=== PATIENT | female | born 1955 | race Caucasian/White ===

== ENCOUNTER → 2020-08-18 07:31 | Outpatient (CLI) | payer OTHER, SELFPAY ==
--- NOTE | ~2020-08-18 | MM_ITS ---
EXAMINATION: MM screening [facility] BI w hardeep HISTORY: Screening TECHNIQUE: Craniocaudal and mediolateral oblique 3-D tomosynthesis images were obtained and synthetic 2-D images were generated. CAD analysis was submitted and interpreted. COMPARISON: Comparison to multiple prior studies sequentially, with oldest reviewed study dated 04/02. BREAST PARENCHYMAL COMPOSITION: There are scattered areas of fibroglandular density. FINDINGS: There is no evidence of suspicious mass, calcification, or architectural distortion to sugg est malignancy in either breast. There has been no suspicious interval change. IMPRESSION: 1. No mammographic evidence of malignancy. 2. Recommend routine screening mammography in one year. BI-RADS Category 1: Negative Reviewed, dictated and finalized at location A.
== END ==
PROVIDERS: PCP Emergency Medicine; Visit Provider Emergency Medicine
DX: Z12.31 Encounter for screening mammogram for malignant neoplasm of breast (principal)
CPT/HCPCS: 77063; 77067

== ENCOUNTER 2021-03-06 08:37 | Emergency (ER) | payer MEDICARE, OTHER, SELFPAY ==
[2021-03-06] VITALS (14 sets, daily range): BP systolic 135–147; BP diastolic 68–97; PULSE 91; RESP 16; TEMP 36.9; O2SAT 96–100
--- NOTE | ~2021-03-06 | XR_ITS ---
EXAMINATION: XR chest 2V DATE: 03/06/2021 10:40 INDICATION: Intermittent epigastric abdominal pain. TECHNIQUE: Frontal and lateral views of the chest were obtained. COMPARISON: None. FINDINGS: There is mild atelectasis in the lower lung zones. There is mild scarring at the lung apice s. No pleural effusion or pneumothorax. The heart size is normal. There is a large hiatal hernia. IMPRESSION: 1. Large hiatal hernia. 2. Mild atelectasis in the lower lung zones. Reviewed, dictated and finalized at location A.
--- NOTE | ~2021-03-06 | US_ITS ---
EXAMINATION: US abdomen limited DATE: 03/06/2021 11:23 INDICATION: Intermittent epigastric pain. TECHNIQUE: Multiple grayscale and Doppler ultrasound images of the abdomen were obtained. COMPARISON: None FINDINGS: The pancreatic head and body are normal in appearance. The pancreatic tail is not visualized. Liver has normal echogenicity and contour, with a smooth surface. There are couple anechoic hepatic cysts w ith posterior acoustic enhancement measuring 2.3 cm and 1.9 cm in maximal diameters. No solid liver l esion identified. No intrahepatic biliary duct dilation suspected. Portal venous flow was seen in the hepatopetal, normal direction and has normal Doppler waveform. The gallbladder is normal in appearan ce. There is no cholelithiasis. The common bile duct measures 4 mm, which is normal. Sonographic Mur phy sign was reported as negative by the auto mechanic apprentice. IMPRESSION: 1. A couple approximately 2 cm incidental hepatic cysts. Otherwise unremarkable right upper quadrant ultrasound. Reviewed, dictated and finalized at location B.
[2021-03-06 09:03] LABS: Basophils Absolute Auto 0.1 K/mm3 (0.0-0.1); Basophils Percent Auto 1.2 % (0.2-1.2); Eosinophils Absolute Auto 0.2 K/mm3 (0-0.3); Eosinophils Percent Auto 2.5 % (0-4.4); Hematocrit 39.5 % (37.0-47.0); Hemoglobin 13.3 g/dL (12.0-15.0); Immature Granulocyte Absolute 0.02 K/mm3 (0.00-0.031); Immature Granulocyte Percent A 0.2 % (0-0.5); Lymphocytes Absolute Auto 1.33 K/mm3 (0.9-3.2); Lymphocytes Percent Auto 15.9 % (18.3-44.2); Mean Corpuscular HGB Conc 33.7 g/dl (32-36); Mean Corpuscular Hemoglobin 30.9 pg (26-34); Mean Corpuscular Volume 91.9 fl (80-100); Mean Platelet Volume 10.8 fl (7.4-10.4); Monocytes Absolute Auto 0.7 K/mm3 (0.1-0.6); Monocytes Percent Auto 8.5 % (2.6-8.5); Neutrophils Percent Auto 71.7 % (45.5-73.1); Platelet Count Result 229 k/mm3 (150-375); Red Cell Distribution Width 12.6 % (11.5-14.5); White Blood Count 8.4 K/mm3 (4.5-10.0)
[2021-03-06 10:18] LABS: Add Urine Microscopic? YES; Appearance Urine Clear (Clear); Bilirubin Urine Negative (Negative); Blood Urine Negative (Negative); Color Urine Amber (Yellow); Glucose Urine UA Negative (Negative); Ketones Urine Trace mg/dL (Negative); Leukocyte Esterase Ur 1+ LEU/UL (Negative); Mucus Urine Heavy /lpf; Nitrate Urine Negative (Negative); Protein Urine 1+ mg/dL (Negative); Specific Grav Ur 1.028 (1.001-1.035); Squamous Epithelial Cell Urine Occasional /hpf (Few)
--- NOTE | 2021-03-06 10:19 | ECG_ITS ---
Measurements Intervals [place] Rate: 81 P: 20 [place]: 159 QRS: 16 QRSD: 93 T: 46 QT: 357 QTc: 416 Interpretive Statements SINUS RHYTHM POSSIBLE LEFT ATRIAL ENLARGEMENT INCOMPLETE RIGHT BUNDLE BRANCH BLOCK BASELINE ARTIFACT- I, II, III, AVR, AVL, V4-V5 BORDERLINE ECG Electronically Signed On 03-06-2021 10:58:05 CDT by Valerio Garrido D.O.
[2021-03-06 10:25] LABS: Alanine Aminotransferase 30 U/L (4-35); Albumin Level 4.7 g/dL (3.5-5.1); Alkaline Phosphatase 86 U/L (38-126); Anion Gap 6 mmol/L (8-16); Aspartate Amino Transferase 32 U/L (14-36); Bilirubin,Total 0.5 mg/dL (0.2-1.3); Blood Urea Nitrogen 17 mg/dL (7-17); Calcium 9.5 mg/dL (8.4-10.2); Carbon Dioxide 34 mmol/L (22-30); Chloride 101 mmol/L (98-107); Estimated CRCL calculation 83 ml/min; Estimated Glomerular Filt Rate > 60; Glucose 113 mg/dL (65-110); Lipase 47 U/L (23-300); Potassium 3.7 mmol/L (3.4-5.0); Sodium 141 mmol/L (137-145)
[2021-03-06 13:13] LABS: Troponin I < 0.012 ng/mL (0.000-0.034)
--- NOTE | 2021-03-06 17:30 | ED.GENADULT ---
HPI - General Adult General Chief complaint: Abdominal Pain Stated complaint: stomach issues Time Seen by Provider: 03/06/21 09:15 Source: patient Mode of arrival: ambulatory Limitations: no limitations History of Present Illness HPI narrative: Patient presents for evaluation of pain in her epigastric area that has been occurring for multiple weeks. Patient reports she notices the pain increased after she is eating. She states that she keeps the pain manageable by eating very small amounts of food. She states that the pain increases she has tried to take Tums in order to help. She reports a few episodes of vomiting but not persistently. She denies any fevers, chills, pain presently. She reports that her bowels are normal. She denies any fever, chills, cough, shortness of breath. Related Data Home Medications Medication Instructions Recorded Confirmed fluticasone propionate 50 See Rx Instructions .ROUTE .COMPLEX 05/14/19 mcg/actuation nasal spray,suspension Allergies Allergy/AdvReac Type Severity Reaction Status Date / Time No Known Allergies Allergy Unknown Unverified 02/24/18 15:01 Review of Systems Review of Systems: CONSTITUTIONAL: Denies fever, chills, or sweats. EYES: Denies visual changes, redness, or discharge. ENT: Denies rhinorrhea, congestion, sore throat, or otalgia. CARDIOVASCULAR: Denies chest pain, palpitations, or edema. RESPIRATORY: Denies cough or dyspnea. GASTROINTESTINAL: Reports abdominal pain, nausea, vomiting denies diarrhea. GENITOURINARY: Denies dysuria or hematuria. SKIN: Denies rash or itching. MUSCULOSKELETAL: Denies back pain, joint pain, or myalgia. NEUROLOGIC: Denies headache, numbness, dizziness, or weakness. PSYCHIATRIC: Denies anxiety or depression. PMFSH Past Medical History Medical History HLD (hyperlipidemia) Family History Family History Father Acute myocardial infarction, Onset Age: 87 Other Family history of arthritis Family history of cardiovascular disease Hypertension Social History Social History Smoking status: Never smoker Alcohol intake: current Exam Narrative: GENERAL: Well-appearing, well-nourished, and in no acute distress. HEAD: Normocephalic, atraumatic. EYES: PERRLA and EOMI. NECK: Supple. No adenopathy or masses. CHEST: Clear to auscultation. No respiratory distress. No wheezes rales or rhonchi HEART: Regular rate and rhythm. No murmur heard. Normal peripheral pulses. ABDOMEN: Soft, epigastric/upper center tenderness to palpation, nondistended, normal active bowel sounds. EXTREMITIES: Normal range of motion. No edema. SKIN: Warm, dry, no rash. NEURO: No focal deficits. Alert and oriented x3. PSYCH: Normal mood and affect. Course Vital Signs Vital signs: Vital Signs Temperature 98.4 F 03/06/21 08:41 Pulse Rate 91 03/06/21 08:41 Respiratory Rate 16 03/06/21 08:41 Blood Pressure 146/76 H 03/06/21 08:41 Pulse Oximetry 100 03/06/21 08:41 Temperature 98.4 F 03/06/21 08:41 Pulse Rate 91 03/06/21 08:41 Respiratory Rate 16 03/06/21 08:41 Blood Pressure 135/74 03/06/21 13:46 Pulse Oximetry 97 03/06/21 10:47 Medical Decision Making MDM Narrative Medical decision making narrative: Patient's ultrasound of her gallbladder was without signs of cholecystitis. Patient vital signs are stable. Patient CT shows hiatal hernia. Discussed with patient attempts to decrease her symptoms by eating small amounts of to and PPIs. Patient instructed to follow-up with primary care GI specialist for further investigation and management of her symptoms. Patient instructed to return to emergency department if she develops any signs of incarceration or any other emergent symptoms. Vital Signs Vital Signs: Vital Signs Temperature 98.4 F
== END 2021-03-06 13:48 | disposition home or self-care (01) ==
PROVIDERS: Physician Assistant; Emergency Provider Emergency Medicine; PCP Emergency Medicine
DX: K44.9 Diaphragmatic hernia without obstruction or gangrene (principal); E78.5 Hyperlipidemia, unspecified
CPT/HCPCS: 36415; 71046; 76705; 80053; 81001; 83690; 84484; 85025; 87086; 93005; 99284

== ENCOUNTER 2021-04-24 00:34 | Day surgery (SDC) | payer MEDICARE, SELFPAY ==
[2021-04-12 09:29] VITALS: BMI 34.5
[2021-04-24 13:00] VITALS: BP 138/62; PULSE 79; RESP 18; TEMP 36.2; O2SAT 99; BMI 32.8
--- NOTE | 2021-04-24 13:23 | WPDANESEPPF ---
Anes - Initial Pre Proc Eval Procedure: Operation Date: 04/24/21 14:00 Proposed Procedures p Esophagogastroduodenoscopy - Abhishek Hargrove MD Date/Time: 04/24/21 13:23 Surgeon: Abhishek Hargrove MD Pre Op Diagnosis: epigastric pain Patient Data Age: 66 Gender: F Height: 1.7 m Weight: 95 kg Last Vital Signs Temp 36.2 C L 04/24/21 13:00 Pulse 79 04/24/21 13:00 Resp 18 04/24/21 13:00 BP 138/62 04/24/21 13:00 Pulse Ox 99 04/24/21 13:00 Allergies Allergy/AdvReac Type Severity Reaction Status Date / Time No Known Allergies Allergy Unknown Verified 04/24/21 13:13 Home Medications Medication Instructions Recorded Confirmed Type omeprazole 20 mg PO DAILY #14 tablet 03/06/21 04/24/21 Rx L.acidoph, paracasei,B. lactis 10 10 cell PO DAILY 04/06/21 04/24/21 History billion cell capsule ascorbic acid (vitamin C) 1,000 mg 1 g PO DAILY 04/06/21 04/24/21 History tablet cholecalciferol (vitamin D3) 125 125 mcg PO DAILY 04/06/21 04/24/21 History mcg (5,000 unit) capsule glucosam 750 mg-chondroi 100 2 tablet PO DAILY 04/06/21 04/24/21 History mg-hyalur 1.65 mg-CF borate 108 mg tablet mecobalamin (vitamin B12) 1,000 1,000 mcg SUBLINGUAL DAILY 04/06/21 04/24/21 History mcg disintegrating tablet,sublingual multivitamin 1 tablet PO DAILY 04/06/21 04/24/21 History omega 3-sbz-rcu-fish oil 1,200 mg 1 cap PO DAILY 04/06/21 04/24/21 History (144 mg-216 mg) capsule Patient hx anesthesia problems: none Family hx anesthesia problems: none Results Review: All pre-operative results and documents have been reviewed as part of the pre-operative evaluation. [facility] Past Medical History Medical History (Updated 04/24/21 @ 13:24 by Asif Mauricio MD) GERD (gastroesophageal reflux disease) HLD (hyperlipidemia) Obesity SHERRY (obstructive sleep apnea) Family History Family History Father Acute myocardial infarction, Onset Age: 87 Malignant neoplasm of prostate Hypertension Mother Hypertension Other Family history of arthritis Family history of cardiovascular disease Social History Social History (Updated 04/24/21 @ 13:24 by Asif Mauricio MD) Smoking packs per day: 0.5 Smoking cigarettes per day: 10.0 Years smoked: 11 Smoking pack-years: 5.50 Smoking status: Former smoker Tobacco type: cigarettes Smoking end date: 06/02/83 Alcohol intake: current Alcohol use details: rarely Living arrangements: with family Spiritual care concerns: No Anes - Eval Final PreProcedure Day of Procedure 04/24/21 13:23 Patient weight: obese Heart: regular rate and rhythm Lungs: clear to auscultation Airway: Mallampati scale class II Neurological: alert and oriented Last oral intake: >/= 8 hours ASA classification: III Emergent: no Anesthetic plan: proceed Anesthesia type and monitoring: general GIVS and standard monitoring Results Review: All pre-operative results and documents have been reviewed as part of the pre-operative evaluation. Informed Consent: The patient's anesthetic plan and its attendant risks and benefits were discussed with the patient/family/POA. Questions were solicited and answers provided to the satisfaction of the patient/family/POA.
[2021-04-24] MEDS: LACTATED RINGERS 1,000 ML 150 ML IV CONT (13:32)
--- NOTE | 2021-04-24 13:38 | WPDGICN ---
Assessment and Plan Assessment and plan (1) Epigastric abdominal pain: Code(s): R10.13 - Epigastric pain Status: Acute Assessment and Plan: Epigastric pain appears to represent dyspepsia. Agree with trial of omeprazole 20mg p.o Daily. Because of a EGD is requested we will hopefully exclude any other organic disease. Initially we would try stopping this medications in restart it will start long-term only if symptoms recur. GI Consult Note Consult date/time: 04/24/21 13:38 HPI: Livia Goodwin is a 66 year old female Presents for EGD. Patient complains of a several month history of epigastric discomfort. She feels as though there was a knot in her stomach. She took sxqi-wwi-wrgwgez antacid such as Rolaids which helped initially but then failed to improve. Upon being referred to the GI service she was started on omeprazole with prompt improvement of pain. Patient presents today for EGD to further evaluate this kind of discomfort. She no longer has the pain today. She denies any bleeding or weight loss family history is noncontributory. Review of Systems Review of Systems: All systems reviewed & are unremarkable except as noted in HPI and below PMFSH Past Medical History Medical History (Updated 04/24/21 @ 13:40 by Abhishek Hargrove MD) GERD (gastroesophageal reflux disease) HLD (hyperlipidemia) Obesity SHERRY (obstructive sleep apnea) Family History Family History Father Acute myocardial infarction, Onset Age: 87 Malignant neoplasm of prostate Hypertension Mother Hypertension Other Family history of arthritis Family history of cardiovascular disease Social History Social History (Updated 04/24/21 @ 13:24 by Asif Mauricio MD) Smoking packs per day: 0.5 Smoking cigarettes per day: 10.0 Years smoked: 11 Smoking pack-years: 5.50 Smoking status: Former smoker Tobacco type: cigarettes Smoking end date: 06/02/83 Alcohol intake: current Alcohol use details: rarely Living arrangements: with family Spiritual care concerns: No Meds Home Medications and Allergies Home Medications Medication Instructions Recorded Confirmed Type omeprazole 20 mg PO DAILY #14 tablet 03/06/21 04/24/21 Rx L.acidoph, paracasei,B. lactis 10 10 cell PO DAILY 04/06/21 04/24/21 History billion cell capsule ascorbic acid (vitamin C) 1,000 mg 1 g PO DAILY 04/06/21 04/24/21 History tablet cholecalciferol (vitamin D3) 125 125 mcg PO DAILY 04/06/21 04/24/21 History mcg (5,000 unit) capsule glucosam 750 mg-chondroi 100 2 tablet PO DAILY 04/06/21 04/24/21 History mg-hyalur 1.65 mg-CF borate 108 mg tablet mecobalamin (vitamin B12) 1,000 1,000 mcg SUBLINGUAL DAILY 04/06/21 04/24/21 History mcg disintegrating tablet,sublingual multivitamin 1 tablet PO DAILY 04/06/21 04/24/21 History omega 9-xym-rdk-fish oil 1,200 mg 1 cap PO DAILY 04/06/21 04/24/21 History (144 mg-216 mg) capsule Allergies Allergy/AdvReac Type Severity Reaction Status Date / Time No Known Allergies Allergy Unknown Verified 04/24/21 13:13 Vital Signs Vital Signs - 24 hr 04/24/21 13:00 Temperature 97.2 F L Pulse Rate 79 Respiratory Rate 18 Blood Pressure 138/62 Pulse Oximetry 99 Exam Narrative: Physical exam reveals patient be alert. Vital signs stable. HEENT exam is unremarkable. Patient is anicteric. Lungs are clear to auscultation and percussion. Heart is without murmur or extra sounds. Abdominal exam bowel sounds are present soft nontender with no hepatosplenomegaly. Digital external rectal exam deferred at present.
[2021-04-24] MEDS: SIMETHICONE ORAL SUSPENSION 20 MG/0.3 ML 30 ML BOTTLE 0.6 ML IRRIGATION (13:48)
[2021-04-24 13:57] VITALS: BP 98/75; PULSE 81; RESP 20; O2SAT 100
[2021-04-24 14:07] VITALS: BP 120/76; PULSE 79; RESP 21; O2SAT 100
[2021-04-24 14:17] VITALS: BP 132/86; PULSE 76; RESP 15; O2SAT 100
== END 2021-04-24 14:32 | disposition home or self-care (01) ==
PROVIDERS: PCP Emergency Medicine; Visit Provider Internal Medicine Gastroenterology
PROC: 0DJ08ZZ Inspection of Upper Intestinal Tract, Via Natural or Artificial Opening Endoscopic (ICD-10-PCS; CPT 43235; principal; 2021-04-24 14:00)
DX: K21.9 Gastro-esophageal reflux disease without esophagitis (principal); K29.50 Unspecified chronic gastritis without bleeding; E78.5 Hyperlipidemia, unspecified; G47.33 Obstructive sleep apnea (adult) (pediatric); Z87.891 Personal history of nicotine dependence; K25.3 Acute gastric ulcer without hemorrhage or perforation
CPT/HCPCS: 43239; 88305; 88342; J7120

== ENCOUNTER 2021-07-31 01:27 | Day surgery (SDC) | payer MEDICARE, SELFPAY ==
[2021-07-18 12:10] VITALS: BMI 33.8
[2021-07-31 08:08] VITALS: BP 145/71; PULSE 79; RESP 20; TEMP 36.5; O2SAT 98; BMI 35.1
[2021-07-31] MEDS: LACTATED RINGERS 1,000 ML 150 ML IV CONT (08:14)
--- NOTE | 2021-07-31 08:39 | WPDGICN ---
Assessment and Plan Assessment and plan (1) History of gastric ulcer: Code(s): Z87.11 - Personal history of peptic ulcer disease Status: Acute Assessment and Plan: Patient has a gastric ulcer in MarchApril 2021 documented by EGD. Most likely related to NSAID use. Plan is for follow-up EGD at this time. Patient should continue to avoid NSAIDs. PPI use may be used p.r.n. if ulcer is documented to be healed GI Consult Note Consult date/time: 07/31/21 08:39 HPI: Livia Goodwin is a 66 year old female Presents for follow-up EGD. Patient identified as having a gastric ulcer in April of 2021. At that time she was taking nonsteroidal anti-inflammatory agents. Now has been treated with omeprazole 20mg p.o. daily. She is now avoiding NSAIDs. She states she feels much better. There has been no evidence of bleeding or dark stools. She denies abdominal pain. Diet as tolerated without difficulty. She presents for follow-up EGD to document healing of this ulcer. Review of Systems Review of Systems: All systems reviewed & are unremarkable except as noted in HPI and below PMFSH Past Medical History Medical History (Updated 07/31/21 @ 08:40 by Abhishek Hargrove MD) GERD (gastroesophageal reflux disease) HLD (hyperlipidemia) Obesity SHERRY (obstructive sleep apnea) Family History Family History Father Acute myocardial infarction, Onset Age: 87 Malignant neoplasm of prostate Hypertension Mother Hypertension Other Family history of arthritis Family history of cardiovascular disease Social History Social History (Updated 04/24/21 @ 13:24 by Asif Mauricio MD) Smoking packs per day: 0.5 Smoking cigarettes per day: 10.0 Years smoked: 11 Smoking pack-years: 5.50 Smoking status: Never smoker Tobacco type: cigarettes Smoking end date: 06/02/83 Alcohol intake: current Alcohol use details: Rarely Substance use type: does not use Living arrangements: alone Spiritual care concerns: No Meds Home Medications and Allergies Home Medications Medication Instructions Recorded Confirmed Type omeprazole 20 mg PO DAILY #14 tablet 03/06/21 07/18/21 Rx L.acidshannan lopezB. lactis 10 10 cell PO DAILY 04/06/21 07/18/21 History billion cell capsule ascorbic acid (vitamin C) 1,000 mg 1 g PO DAILY 04/06/21 07/18/21 History tablet cholecalciferol (vitamin D3) 125 125 mcg PO DAILY 04/06/21 07/18/21 History mcg (5,000 unit) capsule glucosam 750 mg-chondroi 100 2 tablet PO DAILY 04/06/21 07/18/21 History mg-hyalur 1.65 mg-CF borate 108 mg tablet mecobalamin (vitamin B12) 1,000 1,000 mcg SUBLINGUAL DAILY 04/06/21 07/18/21 History mcg disintegrating tablet,sublingual multivitamin 1 tablet PO DAILY 04/06/21 07/18/21 History omega 1-zyq-vnq-fish oil 1,200 mg 1 cap PO DAILY 04/06/21 07/18/21 History (144 mg-216 mg) capsule Allergies Allergy/AdvReac Type Severity Reaction Status Date / Time No Known Allergies Allergy Unknown Verified 07/31/21 08:07 Vital Signs Vital Signs - 24 hr 07/31/21 08:08 Temperature 97.7 F Pulse Rate 79 Respiratory Rate 20 Blood Pressure 145/71 H Pulse Oximetry 98 Exam Narrative: Physical exam reveals patient to be alert. Vital signs stable. HEENT exam is unremarkable. Patient is anicteric. Lungs are clear to auscultation and percussion. Heart is without murmur or extra sounds. Abdominal exam bowel sounds are present soft nontender with no organomegaly.
--- NOTE | 2021-07-31 08:51 | WPDANESEPPF ---
Anes - Initial Pre Proc Eval Procedure: Operation Date: 07/31/21 09:30 Proposed Procedures p Esophagogastroduodenoscopy - Abhishek Hargrove MD Date/Time: 07/31/21 08:51 Surgeon: Abhishek Hargrove MD Pre Op Diagnosis: gastric ulcer Patient Data Age: 66 Gender: F Height: 1.7 m Weight: 101.7 kg Last Vital Signs Temp 97.7 F 07/31/21 08:08 Pulse 79 07/31/21 08:08 Resp 20 07/31/21 08:08 BP 145/71 H 07/31/21 08:08 Pulse Ox 98 07/31/21 08:08 Allergies Allergy/AdvReac Type Severity Reaction Status Date / Time No Known Allergies Allergy Unknown Verified 07/31/21 08:07 Home Medications Medication Instructions Recorded Confirmed Type omeprazole 20 mg PO DAILY #14 tablet 03/06/21 07/18/21 Rx L.acidoph, paracasei,B. lactis 10 10 cell PO DAILY 04/06/21 07/18/21 History billion cell capsule ascorbic acid (vitamin C) 1,000 mg 1 g PO DAILY 04/06/21 07/18/21 History tablet cholecalciferol (vitamin D3) 125 125 mcg PO DAILY 04/06/21 07/18/21 History mcg (5,000 unit) capsule glucosam 750 mg-chondroi 100 2 tablet PO DAILY 04/06/21 07/18/21 History mg-hyalur 1.65 mg-CF borate 108 mg tablet mecobalamin (vitamin B12) 1,000 1,000 mcg SUBLINGUAL DAILY 04/06/21 07/18/21 History mcg disintegrating tablet,sublingual multivitamin 1 tablet PO DAILY 04/06/21 07/18/21 History omega 6-ood-chv-fish oil 1,200 mg 1 cap PO DAILY 04/06/21 07/18/21 History (144 mg-216 mg) capsule Patient hx anesthesia problems: none Family hx anesthesia problems: none Results Review: All pre-operative results and documents have been reviewed as part of the pre-operative evaluation. [facility] Past Medical History Medical History (Updated 07/31/21 @ 08:40 by Abhishek Hargrove MD) GERD (gastroesophageal reflux disease) HLD (hyperlipidemia) Obesity SHERRY (obstructive sleep apnea) Family History Family History Father Acute myocardial infarction, Onset Age: 87 Malignant neoplasm of prostate Hypertension Mother Hypertension Other Family history of arthritis Family history of cardiovascular disease Social History Social History (Updated 04/24/21 @ 13:24 by Asif Mauricio MD) Smoking packs per day: 0.5 Smoking cigarettes per day: 10.0 Years smoked: 11 Smoking pack-years: 5.50 Smoking status: Never smoker Tobacco type: cigarettes Smoking end date: 06/02/83 Alcohol intake: current Alcohol use details: Rarely Substance use type: does not use Living arrangements: alone Spiritual care concerns: No Anes - Eval Final PreProcedure Day of Procedure 07/31/21 08:51 Patient weight: obese Heart: regular rate and rhythm Lungs: clear to auscultation Airway: Mallampati scale class II Neurological: alert and oriented Last oral intake: >/= 8 hours ASA classification: III Emergent: no Anesthetic plan: proceed Anesthesia type and monitoring: general GIVS and standard monitoring Results Review: All pre-operative results and documents have been reviewed as part of the pre-operative evaluation. Informed Consent: The patient's anesthetic plan and its attendant risks and benefits were discussed with the patient/family/POA. Questions were solicited and answers provided to the satisfaction of the patient/family/POA.
[2021-07-31] MEDS: SIMETHICONE ORAL SUSPENSION 20 MG/0.3 ML 30 ML BOTTLE 0.6 ML IRRIGATION (09:23)
[2021-07-31 09:31] VITALS: BP 132/75; PULSE 76; RESP 23; O2SAT 100
[2021-07-31 09:41] VITALS: BP 130/78; PULSE 78; RESP 27; O2SAT 100
[2021-07-31 09:51] VITALS: BP 132/81; PULSE 71; RESP 20; O2SAT 98
--- NOTE | 2021-07-31 10:08 | SUR.PHASEII ---
Patient given phone number to schedule Upper GI ([phone]) and instructed to call and schedule procedure as soon as possible. Patient also given phone number of Dr. Li's office ([phone]) and instructed to call regarding appointment for surgical followup if she does not receive a call from the office.
== END 2021-07-31 10:15 | disposition home or self-care (01) ==
PROVIDERS: PCP Emergency Medicine; Visit Provider Internal Medicine Gastroenterology
PROC: 0DJ08ZZ Inspection of Upper Intestinal Tract, Via Natural or Artificial Opening Endoscopic (ICD-10-PCS; CPT 43235; principal; 2021-07-31 09:30)
DX: Z09 Encounter for follow-up examination after completed treatment for conditions other than malignant neoplasm (principal); K44.9 Diaphragmatic hernia without obstruction or gangrene; K21.9 Gastro-esophageal reflux disease without esophagitis; Z87.11 Personal history of peptic ulcer disease; E78.5 Hyperlipidemia, unspecified; G47.33 Obstructive sleep apnea (adult) (pediatric); E66.9 Obesity, unspecified; Z68.35 Body mass index [BMI] 35.0-35.9, adult; Z87.891 Personal history of nicotine dependence
CPT/HCPCS: 43235; J2704; J7120

== ENCOUNTER 2021-08-06 08:03 | Outpatient (CLI) | payer MEDICARE, SELFPAY ==
--- NOTE | ~2021-08-06 | XR_ITS ---
EXAMINATION: XR UGIAC wo kub EXAM DATE: 08/06/2021 09:04 INDICATION: K44.9 - Diaphragmatic hernia without obstruction or gangrene . TECHNIQUE: Standard single and double contrast barium upper GI examination was performed by radiolog ismoon Sanders M.D. Pulsed dose reduction fluoroscopy was used with fluoroscopic time of 0.7 minut es. The DAP for this procedure was 25 Gycm2. A total of 119 images obtained for the exam. There is no prior study for comparison. Correlation was made with images from patient's endoscopy. FINDINGS: There is no esophageal stricture, diverticulum or mass identified. There is large paraesop hageal hiatal hernia, with the gastric cardia and most of gastric body intrathoracic in location. The stomach is without evidence of mass lesion, ulceration or filling defect. There is normal rugal fold pattern. The duodenal bulb is unremarkable. Small duodenal diverticulum. IMPRESSION: 1. Large paraesophageal hiatal hernia. 2. Small duodenal diverticulum. Reviewed, dictated and finalized at location A. POLISHER
== END 2021-08-06 08:04 | disposition home or self-care (01) ==
LOC: ANHIMG 08:06
PROVIDERS: PCP Emergency Medicine; Visit Provider Internal Medicine Gastroenterology
DX: K44.9 Diaphragmatic hernia without obstruction or gangrene (principal); K57.10 Diverticulosis of small intestine without perforation or abscess without bleeding
CPT/HCPCS: 74246

== ENCOUNTER → 2021-10-19 07:29 | Outpatient (CLI) | payer MEDICARE, SELFPAY ==
--- NOTE | ~2021-10-19 | MM_ITS ---
EXAMINATION: MM screening [facility] BI w hardeep HISTORY: Screening mammogram TECHNIQUE: Craniocaudal and mediolateral oblique 3-D tomosynthesis images were obtained and synthetic 2-D images were generated. CAD analysis was submitted and interpreted. COMPARISON: 08/18/2020, 10/17/2018, 08/16/2017 BREAST PARENCHYMAL COMPOSITION: There are scattered areas of fibroglandular density. FINDINGS: There is no suspicious mass, calcification, or architectural distortion to suggest malignan cy in either breast. There has been no suspicious interval change. IMPRESSION: 1. No mammographic evidence of malignancy. 2. Recommend routine screening mammography in one year. BI-RADS Category 1: Negative Reviewed, dictated and finalized at location A.
== END ==
PROVIDERS: PCP Emergency Medicine; Visit Provider Emergency Medicine
DX: Z12.31 Encounter for screening mammogram for malignant neoplasm of breast (principal)
CPT/HCPCS: 77063; 77067

== ENCOUNTER 2021-12-17 12:36 | Emergency (ER) | payer MEDICARE, SELFPAY ==
--- NOTE | ~2021-12-17 | XR_ITS ---
EXAMINATION: XR elbow LT min 3V DATE: 12/17/2021 13:06 INDICATION: Left elbow injury post fall TECHNIQUE: Anteroposterior, two oblique and lateral views of the left elbow were obtained. COMPARISON: None. FINDINGS: Posterior dislocation and proximal migration of the left radius and ulna. There is intra-articular fr acture involving the posterior aspect of the lateral humeral condyle which is displaced 4-5 cm promotions director iorly along with the proximal radius and ulna. This suggests the fragment includes the attachment of the lateral collateral ligament complex and remains attached to the proximal radius and ulna. No othe r fractures identified. IMPRESSION: 1. Displaced left elbow/lateral humeral condylar fracture dislocation. Reviewed, dictated and finalized at location A.
--- NOTE | ~2021-12-17 | XR_ITS ---
EXAMINATION: XR elbow LT min 3V DATE: 12/17/2021 15:09 INDICATION: Postreduction TECHNIQUE: Anteroposterior, oblique and lateral views of the left elbow were obtained. COMPARISON: 12/17/2021 at 1:01 PM FINDINGS: Successful reduction of the previously dislocated left elbow which is now in near-anatomic alignment. The fracture fragment comprising a portion of the lateral humeral condyle including the lateral epic ondyle is also been reduced to near-anatomic alignment. There appears to be mild comminution along th e fracture plane. No additional tiny bone fragment is seen near the medial humeral epicondyle also po tentially a tiny avulsion fracture fragment although no definitive donor site is appreciated. No frac ture of the visualized proximal radius or ulna. Joint effusion is present along with prominent soft t issue swelling medial to the left elbow. IMPRESSION: 1. Successful reduction to near-anatomic alignment of a left elbow/distal humeral fracture dislocatio n. Reviewed, dictated and finalized at location A. IMPRESSION: 1. Successful reduction to near-anatomic alignment of a left elbow/distal humer al fracture dislocation.
[2021-12-17 12:50] VITALS: BP 132/60; PULSE 86; RESP 16; TEMP 36.1; O2SAT 96
[2021-12-17] MEDS: HYDROmorphone HCL INJ (*CRX) 1 MG/ML SYR 0.5 MG IV PUSH ×2 (14:12→15:02)
[2021-12-17] MEDS: ONDANSETRON INJ 4 MG/2 ML VIAL IV PUSH ×2 (14:12→15:02)
--- NOTE | 2021-12-17 14:15 | ED.FALL ---
HPI - Fall General Chief Complaint: Fall Stated Complaint: fall from middle ring of ladder - left arm pain Time Seen by Provider: 12/17/21 14:15 Source: patient and family Mode of arrival: ambulatory Limitations: no limitations History of Present Illness HPI Narrative: 66 years old white female presents with left elbow pain after losing her balance and falling off a 4 and half feet ladder above the ground. Patient hit left elbow on the door rail in the way going down to the floor. Patient does not remember how she landed on the ground probably her bottom. She denies head injury, neck pain, back pain, loss of consciousness or other injuries. 1 hour prior to arrival to the emergency room. Related Data Home Medications Medication Instructions Recorded Confirmed L.acidoph, paracasei,B. lactis 10 10 cell PO DAILY 04/06/21 10/31/21 billion cell capsule (Digestive Advantage Advanced Probiotic) ascorbic acid (vitamin C) 1,000 mg 1 g PO DAILY 04/06/21 10/31/21 tablet cholecalciferol (vitamin D3) 125 125 mcg PO DAILY 04/06/21 10/31/21 mcg (5,000 unit) capsule glucosam 750 mg-chondroi 100 2 tablet PO DAILY 04/06/21 10/31/21 mg-hyalur 1.65 mg-CF borate 108 mg tablet (Omnidrone) mecobalamin (vitamin B12) 1,000 1,000 mcg sublingual DAILY 04/06/21 10/31/21 mcg disintegrating tablet,sublingual multivitamin (One Daily 1 tablet PO DAILY 04/06/21 10/31/21 Multivitamin tablet) omega 7-egn-iwk-fish oil 1,200 mg 1 cap PO DAILY 04/06/21 10/31/21 (144 mg-216 mg) capsule (Fish Oil) Allergies Allergy/AdvReac Type Severity Reaction Status Date / Time No Known Allergies Allergy Unknown Verified 12/17/21 13:35 Review of Systems Review of Systems: All systems reviewed & are unremarkable except as noted in HPI and below PMFSH Past Medical History Medical History GERD (gastroesophageal reflux disease) HLD (hyperlipidemia) Obesity SHERRY (obstructive sleep apnea) Family History Family History Father Acute myocardial infarction, Onset Age: 87 Malignant neoplasm of prostate Hypertension Mother Hypertension Other Cancer Family history of arthritis Family history of cardiovascular disease Social History Social History Smoking packs per day: 0.5 Smoking cigarettes per day: 10.0 Years smoked: 11 Smoking pack-years: 5.50 Smoking status: Former smoker Tobacco type: cigarettes Smoking end date: 06/02/83 Alcohol intake: current Alcohol use details: Rarely Substance use type: does not use Spiritual care concerns: No Exam Narrative: General appearance: Well-developed, well-nourished Skin: Normal color Head: Normocephalic, nontraumatic Eyes: Clear conjunctiva ENT: Oropharynx normal, ears normal, nose normal Neck: Supple, nontender Chest and respiratory: Airway patent, no respiratory distress, no accessory muscle use Heart: Regular rate/rhythm Abdomen: Soft, nontender, no organomegaly, quiet bowel sounds Vascular: Normal peripheral pulses, normal capillary refill. Musculoskeletal: Deformity of left elbow, swelling, severe limited range of motion, diffusely tender Neurologic: Alert and oriented ?3, [employer] is normal as tested, no gross motor deficit Course Consultations Consultation #1: Dr. Boogie Transfer to [facility], Do not attempt closed reduction until you discuss it with the accepting physician at [facility] Consultation #2: DR LIEBERMAN [facility] ED who accepted patient transfer Vital
== END 2021-12-17 17:27 | disposition short-term general hospital (02) ==
PROVIDERS: Emergency Provider Emergency Medicine; PCP Emergency Medicine
DX: S42.452A Displaced fracture of lateral condyle of left humerus, initial encounter for closed fracture (principal); K21.9 Gastro-esophageal reflux disease without esophagitis; E78.5 Hyperlipidemia, unspecified; G47.33 Obstructive sleep apnea (adult) (pediatric); E66.9 Obesity, unspecified; Z68.31 Body mass index [BMI] 31.0-31.9, adult; Z87.891 Personal history of nicotine dependence; W11.XXXA Fall on and from ladder, initial encounter
CPT/HCPCS: 24535; 73080; 96374; 96375; 96376; 99285; J1170; J2405

== ENCOUNTER → 2021-12-19 10:30 | Outpatient (CLI) | payer MEDICARE, SELFPAY ==
--- NOTE | ~2021-12-19 | DEXA_ITS ---
Bone Density Report Name: ROBERT MATIAS Age: 66 Sex: Female Ethnicity: White Date of : 1955 Indication: osteopenia; prior fracture; postmenopausal Referring Provider: CHRISTOPHER ARCHER Study: Bone densitometry was performed. Exam Date: December 19, 2021 Accession number: [id number] Bone Density: Region BMD T-score Z-score Classification AP Spine (L1-L4) 0.787 -2.4 -0.6 Osteopenia Femoral Neck (Left) 0.790 -0.5 1.0 Normal Total Hip (Left) 0.904 -0.3 0.9 Normal Femoral Neck (Right) 0.773 -0.7 0.9 Normal Total Hip (Right) 0.869 -0.6 0.7 Normal Total Hip Mean 0.887 -0.5 0.8 Normal World Health Organization criteria for BMD impression classify patients as: Normal (T-score at or above -1.0), Osteopenia (T-score between -1.0 and -2.5), or Osteoporosis (T-score at or below -2.5). 10-year Fracture Risk(1): Major Osteoporotic Fracture 12% Hip Fracture 0.7% Reported Risk Factors: [place] (), Neck BMD=0.773, BMI=34.2, previous fracture (1) FRAX(R) Version 3.08. Fracture probability calculated for an untreated patient. Fracture probability may be lower if the patient has received treatment. Previous Exams: Region Exam Age BMD T-score BMD Change BMD Change Date g/cm2 vs Baseline vs Previous AP Spine(L1-L4) 12/19/2021 66 0.787 -2.4 -0.071* -0.071* 04/18/2012 57 0.858 -1.7 Total Hip(Left) 12/19/2021 66 0.904 -0.3 -0.028* -0.028* 04/18/2012 57 0.932 -0.1 Total Hip(Right) 12/19/2021 66 0.869 -0.6 -0.087* -0.087* 04/18/2012 57 0.957 0.1 *Denotes significance at 95% confidence level, LSC for AP Spine = 0.022 g/cm2, LSC for Total Hip = 0.027 g/cm2 Clinical Information Provided by Patient: Has had a low trauma fracture Has used the following medications: Vitamin D Patient maximum height was 66 Menopause Age: 52 Drinks caffeinated beverages Onset of menses at age 14 Number of children 2 Impression: The patient has low bone mass, based on the Total Spine T-score. The patient has an estimated ten-year risk of hip fracture of 0.7% and an estimated ten-year risk of major fracture of 12%, based on the WHO FRAX algorithm. The patient has risk factors, including: previous fracture. The BMD for the AP Spine(L1-L4) decreased, changing by -0.071 since the last DXA exam. The BMD for the Total Hip(Left) decreased, changing by -0.028 since the last DXA exam. The BMD for the Total Hi
== END ==
PROVIDERS: PCP Nurse Practitioner; Visit Provider Emergency Medicine
DX: Z78.0 Asymptomatic menopausal state (principal); M85.88 Other specified disorders of bone density and structure, other site
CPT/HCPCS: 77080

== ENCOUNTER 2022-06-11 10:08 | Outpatient (CLI) | payer MEDICARE, SELFPAY ==
--- NOTE | 2022-06-11 11:02 | ECG_ITS ---
Measurements Intervals [place] Rate: 74 P: 21 MT: 155 QRS: 13 QRSD: 94 T: 52 QT: 363 QTc: 405 Interpretive Statements SINUS RHYTHM INCOMPLETE RIGHT BUNDLE BRANCH BLOCK DELAYED PRECORDIAL R/S TRANSITION CONSIDER INFERIOR INFARCT, AGE INDETERMINATE BASELINE ARTIFACT- I, AVR, AVL, AVF, V3-V6 ABNORMAL ECG COMPARED TO ECG 03/06/2021 10:43:18 NO SIGNIFICANT CHANGES Electronically Signed On 06-11-2022 11:16:15 [employer] by Valerio Garrido D.O.
[2022-06-11 12:09] LABS: Hematocrit 39.8 % (37.0-47.0); Hemoglobin 13.3 g/dL (12.0-15.0)
== END 2022-06-11 10:09 | disposition home or self-care (01) ==
PROVIDERS: Anesthesiology; PCP Emergency Medicine; Visit Provider Surgery
DX: K44.9 Diaphragmatic hernia without obstruction or gangrene (principal); Z01.818 Encounter for other preprocedural examination; I45.10 Unspecified right bundle-branch block
CPT/HCPCS: 36415; 85014; 85018; 86850; 86900; 86901; 93005

== ENCOUNTER 2022-06-18 00:27 | Day surgery (SDC) | payer MEDICARE, SELFPAY ==
[2022-06-11 10:25] VITALS: BMI 31.6
--- NOTE | 2022-06-11 10:35 | PC.NURSE ---
Report to the Outpatient Waiting Room, entrance under the green pavilion located off [facility], at time _6:00AM on date __06/18/22____. Planned Procedure Time: __7:30AM . Time changes happen often and if your time is changed the preop area will call you the afternoon before. - You and your visitor will be asked to self-screen and do not enter if you have any COVID symptoms. - Only one visitor is requested with a max of two and NO children visitors are allowed at this time. - The patient visitor may be requested to leave or wait in car when not with patient due to distancing restrictions. - A mask is optional within the hospital. Patients may have clear liquids (water, carbonated beverages, clear teas, apple juice) until 3 hours prior to surgery with a maximum of 20 ounces. - No food from midnight until time of surgery Take the following medications with a SIP of water the morning of surgery: ___NONE Medications to discontinue per physician __HOLD ALL VITAMINS/SUPPLEMENTS 3 DAYS PRE-OP Date to take last dose__06/14/22 Please no make-up, nail dominican, hairspray, perfume, deodorant, or body powder the day of surgery. No jewelry (including any body piercings) or valuables the day of surgery, leave them at home. Please take a shower or bath the night before, or the morning of, surgery with an antibacterial soap. Wear comfortable, loose fitting clothing. Children are encouraged to wear pajamas. - Jewelry must be removed prior to entering the operating room. Rings and piercings that are not removed may be cut off. - The hospital will not accept responsibility for valuables. - Please leave all valuables, including medications, at home the day of surgery. If you are going home after surgery, a licensed straight truck driver must drive you home. - NO public transportation without another adult if you receive anesthesia. - We recommend that an adult stay with you for 24 hours following discharge. - We also recommend that you do not drive, make important decision, drink alcoholic beverages, or take any drugs that were not prescribed by your health care provider for at least 24 hours after your discharge time. Follow any additional instructions given to you from your surgeon. HIBICLENS SHOWER MORNING OF SURGERY If you or anyone in your household have experienced Covid symptoms in the past week, please notify your surgeon or the nurse liaison at the phone number below for possible testing. Telephone instructions given to __PATIENT and asked if any additional questions and then verbalized understanding. Patient advised to call surgeon office or pre surgery nurse liaison [phone] if any additional questions.
--- NOTE | 2022-06-17 12:32 | WPDANESEPPF ---
Anes - Initial Pre Proc Eval Procedure: Operation Date: 06/18/22 07:30 Proposed Procedures p Robotic Assisted Laparoscopic Paraesophageal Hernia Repair with Shellie Fundoplication, Possible Mesh - Remy Cavazos DO Date/Time: 06/17/22 12:32 Surgeon: Remy Cavazos DO Pre Op Diagnosis: paraesophageal hiatal hernia Patient Data Age: 67 Gender: F Height: 1.69 m Weight: 90.1 kg Allergies Allergy/AdvReac Type Severity Reaction Status Date / Time No Known Allergies Allergy Unknown Verified 06/18/22 13:11 Home Medications Medication Instructions Recorded Confirmed Type glucosam 750 mg-chondroi 100 2 tablet PO DAILY 04/06/21 06/11/22 History mg-hyalur 1.65 mg-CF borate 108 mg tablet ([employer]) multivitamin (One Daily 1 tablet PO DAILY 04/06/21 06/11/22 History Multivitamin tablet) omega 3-svq-pgs-fish oil 1,200 mg 1 cap PO DAILY 04/06/21 06/11/22 History (144 mg-216 mg) capsule (Fish Oil) alendronate 70 mg tablet (Fosamax) 70 mg PO WEEKLY #12 tabs 01/25/22 06/11/22 Rx cholecalciferol (vitamin D3) 50 50 mcg PO DAILY 06/11/22 06/11/22 History mcg (2,000 unit) capsule Antacid (calcium carbonate) 1 tablet PO PRN PRN Gastric Reflux 06/18/22 06/18/22 History hydrocodone 5 mg-acetaminophen 325 0.5 - 1 tablet PO Q4H PRN pain #10 06/19/22 Rx mg tablet tabs ondansetron 4 mg disintegrating 4 mg PO Q6H PRN nausea and 06/19/22 Rx tablet vomiting #10 tabs pantoprazole 40 mg tablet,delayed 40 mg PO QAM #30 tabs 06/19/22 Rx release Patient hx anesthesia problems: none Family hx anesthesia problems: none Results Review: All pre-operative results and documents have been reviewed as part of the pre-operative evaluation. [facility] Past Medical History Medical History (Updated 06/19/22 @ 14:29 by Remy Cavazos DO) GERD (gastroesophageal reflux disease) HLD (hyperlipidemia) Obesity SHERRY (obstructive sleep apnea) Paraesophageal hiatal hernia Family History Family History Father Acute myocardial infarction, Onset Age: 87 Malignant neoplasm of prostate Hypertension Mother Hypertension Other Cancer Family history of arthritis Family history of cardiovascular disease Social History Social History Smoking packs per day: 0.2 Smoking cigarettes per day: 4.0 Years smoked: 3 Smoking pack-years: 0.60 Smoking status: Former smoker Tobacco type: cigarettes Smoking end date: 11/30/73 Additional smoking assessment comments: Smoked as a teenager Alcohol intake: current Drinks per week: 1 Alcohol use details: Rarely Substance use: never Substance use type: does not use Lack of Transportation: No Lack of Food: Never True Current Housing: I Have Housing Concerned About Future Housing: No Difficulty Paying Gas/Electric Bills: No Difficulty Paying for Meds: No Currently Unemployed: No Education: High School Diploma/GED Difficulty w/ Childcare or Family Care: No Living arrangements: with family Additional living arrangements comments: HUSB Spiritual care concerns: No Anes - Eval Final PreProcedure Day of Procedure 06/17/22 12:32 Patient weight: obese Heart: regular rate and rhythm Lungs: clear to auscultation Airway: Mallampati scale class II Neurological: alert and oriented Last oral intake: >/= 8 hours ASA classification: III Emergent: no Anesthetic plan: proceed Anesthesia type and monitoring: general ETT and standard monitoring Results Review: All pre-operative results and documents have been reviewed as part of the pre-operative evaluation. Informed Consent: The patient's anesthetic plan and its attendant risks and benefits were discussed with the patient/family/POA. Questions were solicited and answers provided to the satisfaction of the patient/family/POA.
[2022-06-18] VITALS (13 sets, daily range): BP systolic 112–159; BP diastolic 67–87; PULSE 66–100; RESP 14–18; TEMP 36.2–37.4; O2SAT 90–99
[2022-06-18] MEDS: ACETAMINOPHEN 500 MG TABLET 1000 MG PO (07:00)
[2022-06-18] MEDS: KETOROLAC 15 MG/ML VIAL (*BKC) IV PUSH (07:00)
[2022-06-18] MEDS: LACTATED RINGERS 1,000 ML 30 ML IV CONT ×2 (07:00→11:03)
--- NOTE | 2022-06-18 07:08 | P.PNAN_ITS ---
Anes - Initial Pre Proc Eval Procedure: Operation Date: 06/18/22 07:30 Proposed Procedures p Robotic Assisted Laparoscopic Paraesophageal Hernia Repair with Shellie Fundoplication, Possible Mesh - Remy Cavazos DO Date/Time: 06/18/22 07:08 Surgeon: Remy Cavazos DO Pre Op Diagnosis: paraesophageal hiatal hernia Patient Data Age: 67 Gender: F Height: 1.69 m Weight: 90.1 kg Allergies Allergy/AdvReac Type Severity Reaction Status Date / Time No Known Allergies Allergy Unknown Verified 06/11/22 10:20 Home Medications Medication Instructions Recorded Confirmed Type glucosam 750 mg-chondroi 100 2 tablet PO DAILY 04/06/21 06/11/22 History mg-hyalur 1.65 mg-CF borate 108 mg tablet ([employer]) multivitamin (One Daily 1 tablet PO DAILY 04/06/21 06/11/22 History Multivitamin tablet) omega 8-ydd-mrc-fish oil 1,200 mg 1 cap PO DAILY 04/06/21 06/11/22 History (144 mg-216 mg) capsule (Fish Oil) alendronate 70 mg tablet (Fosamax) 70 mg PO WEEKLY #12 tabs 01/25/22 06/11/22 Rx cholecalciferol (vitamin D3) 50 50 mcg PO DAILY 06/11/22 06/11/22 History mcg (2,000 unit) capsule Patient hx anesthesia problems: post op nausea/vomiting Family hx anesthesia problems: none Results Review: All pre-operative results and documents have been reviewed as part of the pre- operative evaluation. [facility] Past Medical History Medical History (Updated 06/17/22 @ 12:32 by Sánchez Pittman DO) GERD (gastroesophageal reflux disease) HLD (hyperlipidemia) Obesity SHERRY (obstructive sleep apnea) Paraesophageal hiatal hernia Family History Family History Father Acute myocardial infarction, Onset Age: 87 Malignant neoplasm of prostate Hypertension Mother Hypertension Other Cancer Family history of arthritis Family history of cardiovascular disease Social History Social History Smoking packs per day: 0.2 Smoking cigarettes per day: 4.0 Years smoked: 3 Smoking pack-years: 0.60 Smoking status: Former smoker Tobacco type: cigarettes Smoking end date: 11/30/73 Alcohol intake: current Drinks per week: 1 Alcohol use details: Rarely Substance use: never Substance use type: does not use Living arrangements: with family Additional living arrangements comments: LILIANA Spiritual care concerns: No Anes - Eval Final PreProcedure Day of Procedure 06/18/22 07:08 Patient weight: overweight Heart: regular rate and rhythm Lungs: clear to auscultation Airway: Mallampati scale class II Neurological: alert and oriented Last oral intake: >/= 8 hours ASA classification: III Emergent: no Anesthetic plan: proceed Results Review: All pre-operative results and documents have been reviewed as part of the pre- operative evaluation. Informed Consent: The patient's anesthetic plan and its attendant risks and benefits were discussed with the patient/family/POA. Questions were solicited and answers provided to the satisfaction of the patient/family/POA.
--- NOTE | 2022-06-18 07:11 | WPDHPUPDATE1 ---
History and Physical Update Update Date/Time: 06/18/22 07:11 History and Physical has been reviewed, including an updated exam of the patient. There are NO changes in the patient's condition. Risks, benefits, and alternatives have been discussed and questions answered. Patient agrees to proceed with procedure.
--- NOTE | 2022-06-18 07:12 | PM.IMHP ---
H&P: HPI History of Present Illness Date/Time: 06/18/22 07:12 Chief Complaint: hiatal hernia Narrative: 67 yo woman presents for hiatal hernia repair. She reports no changes since last seen in office. Review of Systems Review of Systems: All systems reviewed & are unremarkable except as noted in HPI and below Constitutional: Constitutional: Denies chills, Denies fever(s), Denies headache(s) and Denies weight loss Eyes: Eyes: Denies change in vision ENT: Denies dizziness, Denies headache(s), Denies neck mass and Denies throat swelling Cardiovascular: Cardiovascular: Denies chest pain, Denies lightheadedness and Denies dyspnea Respiratory: Respiratory: Denies cough, Denies dyspnea and Denies wheezing Gastrointestinal: Gastrointestinal: Denies abdominal pain, Denies change in bowel habits, Denies nausea and Denies vomiting Genitourinary: Genitourinary: Denies hematuria and Denies dysuria Musculoskeletal: Musculoskeletal: Reports as per HPI Integumentary/Breasts: Skin/Breast: Reports as per HPI Neurologic: Denies dizziness and Denies headache(s) Allergic/Immunologic: Allergic/Immunologic: Denies throat swelling and Denies wheezing [facility] Past Medical History Medical History (Updated 06/17/22 @ 12:32 by Sánchez Pittman DO) GERD (gastroesophageal reflux disease) HLD (hyperlipidemia) Obesity SHERRY (obstructive sleep apnea) Paraesophageal hiatal hernia Family History Family History Father Acute myocardial infarction, Onset Age: 87 Malignant neoplasm of prostate Hypertension Mother Hypertension Other Cancer Family history of arthritis Family history of cardiovascular disease Social History Social History Smoking packs per day: 0.2 Smoking cigarettes per day: 4.0 Years smoked: 3 Smoking pack-years: 0.60 Smoking status: Former smoker Tobacco type: cigarettes Smoking end date: 11/30/73 Alcohol intake: current Drinks per week: 1 Alcohol use details: Rarely Substance use: never Substance use type: does not use Living arrangements: with family Additional living arrangements comments: HUSB Spiritual care concerns: No Meds Home Medications and Allergies Home Medications Medication Instructions Recorded Confirmed Type glucosam 750 mg-chondroi 100 2 tablet PO DAILY 04/06/21 06/11/22 History mg-hyalur 1.65 mg-CF borate 108 mg tablet ([employer]) multivitamin (One Daily 1 tablet PO DAILY 04/06/21 06/11/22 History Multivitamin tablet) omega 1-tqz-onn-fish oil 1,200 mg 1 cap PO DAILY 04/06/21 06/11/22 History (144 mg-216 mg) capsule (Fish Oil) alendronate 70 mg tablet (Fosamax) 70 mg PO WEEKLY #12 tabs 01/25/22 06/11/22 Rx cholecalciferol (vitamin D3) 50 50 mcg PO DAILY 06/11/22 06/11/22 History mcg (2,000 unit) capsule Allergies Allergy/AdvReac Type Severity Reaction Status Date / Time No Known Allergies Allergy Unknown Verified 06/11/22 10:20 Exam Const: General: no acute distress and alert Orientation/consciousness: patient oriented x3 HENMT: Head: normocephalic and atraumatic Ears: hearing grossly normal bilaterally Face/Nose/Sinus: Normal nares present Mouth: Yes Normal oral and palatal mucosa present Eyes: Periorbital: periorbital findings normal Sclera: sclerae normal EOM: EOMs intact bilaterally Neck: Neck: normal visual inspection, no lymphadenopathy and trachea midline Chest: Chest palpation & inspection: normal inspection of the chest Resp: Effort & Inspection: normal respiratory effort Auscultation: clear to auscultation bilaterally Cardio: Jugular venous distension: no JVD Rate: regular rate Rhythm: regular rhythm Heart sounds: S1 normal heart sound present and S2 normal heart sound present Peripheral pulses: Peripheral pulses 2+ throughout GI: Inspection: normal to in
[2022-06-18] MEDS: SCOPOLAMINE 1.5 MG PATCH TRANSDERM (07:26)
[2022-06-18] MEDS: ceFAZolin 2 GM/D5W 50 ML 2 GM/50 ML BAG IVPB ×3 (07:32→22:33)
[2022-06-18] MEDS: BUPIVACAINE/EPINEPHRINE 0.5% 10 ML VIAL 35 ML INFILTRATE (08:24)
--- NOTE | 2022-06-18 10:57 | W.PM.PROC2 ---
Procedure Note - Detailed Date of Procedure 06/18/22 Pre-op Diagnosis Paraesophageal hiatal hernia, dysphagia Post-op Diagnosis Same Procedure Performed Robotic assisted laparoscopic paraesophageal hernia repair with mesh, 270 degree fundoplication Surgeon Remy Cavazos DO Anesthesia General and Local (0.5% bupivicaine with epi) Indications This is a 67-year-old woman who presented with epigastric abdominal pain and dysphagia for the past year. She had previously presented to the emergency department with the symptoms and chest x-ray showed evidence of a large hiatal hernia. She underwent EGD which showed evidence of a gastric ulcer. She was then treated for the gastric ulcer and follow-up EGD showed a large paraesophageal hernia. She subsequently underwent upper GI contrast study which showed evidence of the large paraesophageal hernia. Discussions were made with the patient about treatment options and decision was made to proceed with robotic assisted laparoscopic paraesophageal hernia repair with possible mesh, and fundoplication. Findings Robotic assisted laparoscopic paraesophageal hernia repair was performed. The patient was found to have a large paraesophageal hernia containing more than half of her stomach. The stomach reduced very easily and appeared healthy and viable. The patient had a large hernia sac extending up into the mediastinum. This was carefully reduced and excised and sent for pathology. A posterior crural repair was performed using 2 0 V lock running permanent suture. This was then also reinforced using Phasix ST mesh. Mesh was configured in a U shape and was placed along the posterior repair. It was secured to the diaphragm using 2-0 Vicryl simple interrupted sutures. The decision was then made to perform a 270 degree partial fundoplication. Description of Procedure Procedure as well as risks, benefits, and alternatives were discussed with the patient. Written consent was obtained and placed in chart prior to procedure. Patient was brought back to surgical suite. She was placed supine on operating table. Time-out was done to confirm patient and procedure. She was then intubated by the anesthesia department. Her abdomen was prepped and draped in sterile fashion using chlorhexidine prep. 0.5% bupivacaine with epinephrine was infiltrated locally around each area for port placement. An 8 mm incision was made in the left upper quadrant 2 cm inferior to the costal margin in the mid clavicular line. A 5 mm Optiview trocar was then advanced through the abdominal layers under direct visualization. Once inside the abdominal cavity, carbon dioxide insufflation was used to create a pneumoperitoneum. The camera was inserted in the abdomen was inspected. No immediate abnormalities were identified. Another 8 mm camera port was placed about 15 cm inferior to the xiphoid just to the left of midline under direct visualization. An 8 mm port was placed in the anterior axillary line on the left upper quadrant at about the same transverse plane as the camera port. An 8 mm port was placed in the right upper quadrant and another 8 mm AirSeal assist port was placed in right lower quadrant just to the right of the umbilicus. A 5 mm incision was made in the subxiphoid region and the Brad liver retractor was inserted through this incision into the abdominal cavity to lift up the left lobe of the liver. This was secured in place to the bed of the table. The patient was then placed in 30? reverse Trendelenburg. The robotic arms were secured to the ports and the robotic camera and instruments were inserted. A force bipolar grasper was placed in the right upper quadrant port. The vessel sealer was placed in the midclavicular left upper quadrant port and a Cadiere grasper was placed in the anterior axillary line left upper quadrant port. I then moved over to the robotic console took control of the camera and instruments. A careful thor
[2022-06-18] MEDS: LACTATED RINGERS 1,000 ML 100 ML IV CONT (13:23)
[2022-06-18] MEDS: ONDANSETRON INJ 4 MG/2 ML VIAL IV PUSH ×2 (13:29→17:49)
[2022-06-18] MEDS: oxyCODONE HCL (*CRX) 2.5 MG TAB IR PO ×2 (15:33→20:01)
[2022-06-18] MEDS: PANTOPRAZOLE SODIUM IV 40 MG VIAL IV PUSH (22:15)
[2022-06-19 02:10] VITALS: BP 121/55; PULSE 85; RESP 18; TEMP 37.1; O2SAT 95
[2022-06-19 05:03] LABS: Hematocrit 36.8 % (37.0-47.0); Hemoglobin 12.2 g/dL (12.0-15.0); Mean Corpuscular HGB Conc 33.2 g/dl (32-36); Mean Corpuscular Hemoglobin 32.4 pg (26-34); Mean Corpuscular Volume 97.9 fl (80-100); Mean Platelet Volume 10.3 fl (7.4-10.4); Platelet Count Result 144 k/mm3 (150-375); Red Blood Count 3.76 M/mm3 (4.2-5.4); Red Cell Distribution Width 12.4 % (11.5-14.5); White Blood Count 7.6 K/mm3 (4.5-10.0)
[2022-06-19 05:25] LABS: Anion Gap 4 mmol/L (8-16); Blood Urea Nitrogen 11 mg/dL (7-17); Calcium 8.3 mg/dL (8.4-10.2); Carbon Dioxide 28 mmol/L (22-30); Chloride 105 mmol/L (98-107); Estimated CRCL calculation 106 ml/min; Estimated Glomerular Filt Rate > 60; Glucose 100 mg/dL (65-110); Potassium 3.5 mmol/L (3.4-5.0); Sodium 137 mmol/L (137-145)
[2022-06-19] MEDS: oxyCODONE HCL (*CRX) 2.5 MG TAB IR PO ×2 (05:50→10:34)
[2022-06-19 06:10] VITALS: BP 121/49; PULSE 85; RESP 16; TEMP 36.3; O2SAT 93
[2022-06-19] MEDS: ceFAZolin 2 GM/D5W 50 ML 2 GM/50 ML BAG IVPB (06:40)
[2022-06-19 06:45] VITALS: O2SAT 96
[2022-06-19] MEDS: PANTOPRAZOLE SODIUM IV 40 MG VIAL IV PUSH (08:07)
[2022-06-19] MEDS: ENOXAPARIN 40 MG/0.4 ML SYRINGE SUB-Q (08:07)
[2022-06-19 10:10] VITALS: BP 137/63; PULSE 92; RESP 18; TEMP 36.3; O2SAT 97
--- NOTE | 2022-06-19 10:22 | WPDANESPN ---
Anes - Prog Note Post-Op Date/Time: 06/19/22 10:22 Cardiovascular status: normal Respiratory status: normal Airway patency: baseline Mental status: baseline Post-Op hydration status: normal Vital Signs: Last Vital Signs Temp 97.3 F L 06/19/22 06:10 Pulse 85 06/19/22 06:10 Resp 16 06/19/22 06:10 BP 121/49 L 06/19/22 06:10 Pulse Ox 96 06/19/22 06:45 O2 Del Method Room Air 06/19/22 06:45 O2 Flow Rate 6 06/18/22 11:30 Pain Score (VAS): 10/09 I/O: Intake & Output 06/18/22 06/19/22 06/19/22 23:59 07:59 15:59 Intake Total 720 1340 520 Output Total 600 Balance 720 740 520 Laboratory Tests 06/19/22 04:49 06/19/22 04:49 06/19/22 06/19/22 04:49 04:49 WBC 7.6 RBC 3.76 L Hgb 12.2 Hct 36.8 L MCV 97.9 MCH 32.4 MCHC 33.2 RDW 12.4 Plt Count 144 L MPV 10.3 Sodium 137 Potassium 3.5 Chloride 105 Carbon Dioxide 28 Anion Gap 4 L BUN 11 D Creatinine 0.50 L Estim Creat Clear Calc 106 Estimated GFR > 60 Glucose 100 Calcium 8.3 L Post-procedural complaints: none Patient Feedback: Patient satisfied with anesthetic care.
[2022-06-19 14:10] VITALS: BP 116/70; PULSE 80; RESP 18; TEMP 37.2; O2SAT 96
--- NOTE | 2022-06-19 14:28 | PM.DS ---
DS: Admitting Diagnosis Discharge Date 06/19/2022 Admitting Diagnosis paraesophageal hernia, dysphagia DS: Discharge Diagnosis Discharge Diagnosis (1) Paraesophageal hiatal hernia: Code(s): K44.9 - Diaphragmatic hernia without obstruction or gangrene Status: Acute (2) Dysphagia: Code(s): R13.10 - Dysphagia, unspecified Status: Acute DS: Summary Hospital Course Reason for hospitalization: paraesophageal hernia Hospital Course: this is a 67-year-old woman who presented for repair a large paraesophageal hernia. She had been experiencing upper abdominal pain and chest pain especially with eating and occasionally had some difficulty swallowing solid foods. She had a previous EGD which showed a gastric ulcer which was treated with PPIs. She then had a follow-up EGD which showed no further gastric ulcer but a large hiatal hernia. This was confirmed on upper GI contrast study. She underwent robotic assisted laparoscopic paraesophageal hernia repair with mesh and 270 degree fundoplication on 06/18/2022. Surgery was uncomplicated and she was admitted to the surgical floor postoperatively. She was started on a clear liquid diet and tolerated this well. On postop day 1 she was advanced to a full liquid diet. She continued to tolerate the full liquids without any significant dysphagia, nausea, or vomiting. Her pain was well controlled and she was remaining hemodynamically stable. She was discharged on postop day 1. Status at Discharge Functional status at discharge: independent ambulation Overall status at discharge: patient is back to baseline Time Spent with Patient Time attestation: Total time spent providing and/or coordinating discharge services: Time spent: Less than 30 minutes Exam Const: General: no acute distress Orientation/consciousness: patient oriented x3 Resp: Effort & Inspection: normal respiratory effort Auscultation: clear to auscultation bilaterally Cardio: Rate: regular rate Rhythm: regular rhythm Heart sounds: S1 normal heart sound present and S2 normal heart sound present GI: Inspection: non-distended and incision ( Intact with glue) GI Palp: Yes Soft to palpation, Yes Tenderness to palpation present (GI) ( incisional) and No Guarding due to palpation present (GI) Auscultation: normal bowel sounds DS: Data Data Completed and Pending Completed studies during hospitalization: Pending at discharge 06/18/22 10:05 Surgical [PTH] Routine Labs on day of discharge: Labs from last 24 hours 01/18/23 01/18/23 04:49 04:49 WBC 7.6 RBC 3.76 L Hgb 12.2 Hct 36.8 L MCV 97.9 MCH 32.4 MCHC 33.2 RDW 12.4 Plt Count 144 L MPV 10.3 Sodium 137 Potassium 3.5 Chloride 105 Carbon Dioxide 28 Anion Gap 4 L BUN 11 D Creatinine 0.50 L Estim Creat Clear Calc 106 Estimated GFR > 60 Glucose 100 Calcium 8.3 L Discharge Plan Discharge Patient Disposition: Home, Self-Care Discharge Instructions: Remove the Scopolamine patch that was placed behind your ear in 72 hours or less. Wash your hands after touching. DISCHARGE INSTRUCTION SHEET FOR HERNIA, GALLBLADDER AND APPENDIX SURGERIES DR. BACON PATIENT TO TAKE HOME 1. May shower in 24 hours, no soaking in bath x 2weeks. 2. Call office for: Wound increasingly painful or bleeding Vomiting Fever of greater than 101 degrees 3. If no bowel movement for three days, take 1 oz. (30 ml) Milk of Magnesia or MiraLax 17g 1 to 2 times daily. 4. No heavy lifting > 10-15 pounds x 6 weeks for hernia repairs. 5. No driving for 3 days or while taking narcotic pain medications. 6. Ice to surgical site for 48 hours (30 min on, then 30 min off). 7. Up walking 10-30 minutes three times per day. 8. Resume previous home medications. 9. Follow-up 10-14 days in office for wound check or as previously scheduled. ([phone]
== END 2022-06-19 16:00 | disposition home or self-care (01) ==
LOC: ANHSURGERY 07:28 → ANH2MED 12:32
PROVIDERS: PCP Emergency Medicine; Visit Provider Surgery
PROC: 0DV44ZZ Restriction of Esophagogastric Junction, Percutaneous Endoscopic Approach (ICD-10-PCS; CPT 43280; principal; 2022-06-18 07:30)
DX: K44.9 Diaphragmatic hernia without obstruction or gangrene (principal); R13.10 Dysphagia, unspecified; Z79.899 Other long term (current) drug therapy; K21.9 Gastro-esophageal reflux disease without esophagitis; E78.5 Hyperlipidemia, unspecified; E66.9 Obesity, unspecified; Z68.31 Body mass index [BMI] 31.0-31.9, adult; G47.33 Obstructive sleep apnea (adult) (pediatric); Z87.891 Personal history of nicotine dependence; F10.90 Alcohol use, unspecified, uncomplicated; Z87.11 Personal history of peptic ulcer disease
CPT/HCPCS: 43282; S2900; 36415; 80048; 85027; 88302; A9270; C9113; J0131; J0690; J1100; J1170; J1650; J1885; J2250; J2405; J2704; J2710; J3010; J7030; J7120

== ENCOUNTER → 2023-02-19 13:17 | Outpatient (CLI) | payer MEDICARE, SELFPAY ==
--- NOTE | ~2023-02-19 | MM_ITS ---
EXAMINATION: MM screening maxim BI w hardeep HISTORY: Screening TECHNIQUE: Craniocaudal and mediolateral oblique 3-D tomosynthesis images were obtained and synthetic 2-D images were generated. CAD analysis was submitted and interpreted. COMPARISON: Comparison to multiple prior studies sequentially, with oldest reviewed study dated 06/03 BREAST PARENCHYMAL COMPOSITION: There are scattered areas of fibroglandular density. FINDINGS: There is no evidence of suspicious mass, calcification, or architectural distortion to sugg est malignancy in either breast. There has been no suspicious interval change. IMPRESSION: 1. No mammographic evidence of malignancy. 2. Recommend routine screening mammography in one year. BI-RADS Category 1: Negative Reviewed, dictated and finalized at location A.
== END ==
PROVIDERS: PCP Emergency Medicine; Visit Provider Emergency Medicine
DX: Z12.31 Encounter for screening mammogram for malignant neoplasm of breast (principal)
CPT/HCPCS: 77063; 77067

== ENCOUNTER 2024-09-08 14:02 | Outpatient (CLI) | payer MEDICARE, SELFPAY ==
--- NOTE | ~2024-09-08 | MM_ITS ---
EXAMINATION: MM screening maxim BI w hardeep HISTORY: Screening TECHNIQUE: Craniocaudal and mediolateral oblique 3-D tomosynthesis images were obtained and synthetic 2-D images were generated. CAD analysis was submitted and interpreted. COMPARISON: Comparison to multiple prior studies sequentially, with oldest reviewed study dated 07/20. BREAST PARENCHYMAL COMPOSITION: Not dense: There are scattered areas of fibroglandular density. FINDINGS: There is no evidence of suspicious mass, calcification, or architectural distortion to sugg est malignancy in either breast. There has been no suspicious interval change. IMPRESSION: 1. No mammographic evidence of malignancy. 2. Recommend routine screening mammography in one year. BI-RADS Category 1: Negative Reviewed, dictated and finalized at location A.
== END 2024-09-08 14:03 | disposition home or self-care (01) ==
LOC: MICIMG 14:03
PROVIDERS: PCP Emergency Medicine; Visit Provider Emergency Medicine
DX: Z12.31 Encounter for screening mammogram for malignant neoplasm of breast (principal)
CPT/HCPCS: 77063; 77067

== ENCOUNTER 2024-12-31 11:02 | Emergency (ER) | payer MEDICARE, SELFPAY ==
--- OUTSIDE RECORDS SUMMARY | 2024-12-31 11:06 | XMS_ITS | Clinical Summary ---
Author Organization [facility] Address [address] [place] [id number] Care Team Providers Care Pick Pack Worker Name Role Phone Unavailable Primary Care Provider Unavailabl e Social History Tobacco Use Types Packs/Day Years Used Date Smoking Tobacco: Never Assessed Comments Unknown Sex and Gender Information Value Date Recorded Sex Assigned at Not on file Legal Sex Female 8:13 PM CDT Gender Identity Not on file Sexual Orientation Not on file Plan of Treatment Health Maintenance Due Date Last Done Comments Colorectal Cancer Screening Colonoscopy (10 Years) 1956 Hepatitis C 1974 DTaP, Tdap and Td Vaccines ( 1 - Tdap) 1975 Mammogram Screening 1996 Pneumococcal Vaccine: 50+ Ye ars (1 of 1 - PCV) 2006 Zoster Vaccines (1 of 2) 2006 Dexa Scan (General) 2021 COVID-19 Vaccine ( - 2023-2 5 season) 2024 RSV Immunization or 60+ Years (1 - 1-dose 75+ series) 2031 Meningococcal B Vaccine Aged Out No l onger eligible based on patient's age to complete this topic Meningococcal Vaccine Aged Out No vilma abby eligible based on patient's age to complete this topic RSV Immunizations Under 20 Months Aged Out No longer eligible based on patient's age to complete this topic
--- OUTSIDE RECORDS SUMMARY | 2024-12-31 11:06 | XMS_ITS | Clinical Summary ---
Author Organization [facility] Address [address] [place] [address] Care Team Providers Care Assurance Analyst Name Role Phone Lui Gregg MD Primary Care Provider [phone] Source Comments [employer] [employer] [facility],non-owned Affiliates and Associated Physician Practices is amultiple site organization consisting of ambulatory clinics and hospital sitesin [place], [place], [place] and [place]. This disclosure is being madepursuant to the Care Everywhere program and may not contain all information available regarding this patient. Last updated 18.[facility] Allergies No known active allergies Medications * Be aware that medications may not be up to date on this document. Alwaysverify current medications with the patient. acetaminophen (TYLENOL) 500 MG tablet Take 500 mg by mouth every 4 hours as needed for Fever or Pain Maximum allowable Acetaminophen amount = 4 Grams (4000 mg) / 24 hours. 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 Gender Identity Not on file Sexual Orientation Not on file Last Filed Vital Signs Vital Sign Reading Time Taken Comments Blood Pressure 145/70 12/31/2021 1:45 PM CDT Pulse 90 12/31/2021 1:45 PM CDT Temperature 36.4 C (97.6 F) 12/31/2021 11:45 AM CDT Respiratory Rate 34 12/31/2021 1:45 PM CDT Oxygen Saturation 95% 12/31/2021 1:45 PM CDT Inhaled Oxygen Concentration 21% 12/31/2021 1 1:00 AM CDT Weight 94.8 kg (209 lb) 03/21/2022 9:31 AM CDT Height 165.1 cm (5' 5) 02/07/2022 12:39 PM CDT Body Mass Index 34.78 02/07/2022 12:39 PM CDT Plan of Treatment Health Maintenance Due Date Last Done Comments BONE DENSITY TESTING 1955 COLOGUARD (AGES 45-75) - COLON CA SCREENING 1956 COLON MONITORING 1956 COLONOSCOPY - COLON CA SCREENING 1956 CT COLONOGRAPHY - COLON CA SCREENING 1956 Colorectal Cancer Screening 1956 FIT - COLON CA SCREENING 1956 FLEX SIG - COLON CA SCREENING 1956 LIPID TESTING 1956 MAMMOGRAM 1955 MEDICARE AWV 12 MONTHS 1956 HEPATITIS C SCREENING 03/16/1974 DTAP/TDAP/TD VACCINES (1 - Tdap) 1975 PNEUMOCOCCAL VACCINE 50+ (1 of 1 - PCV) 2006 ZOSTER VACCINE (1 of 2) 2006 COVID-19 VACCINE (4 - season) 2024 05/17/2021, 09/26/2020, 09/05/2020 DEPRESSION SCREENING 06/02/2024 SCREENING FOR DIABETES 01/09/2025 2, 01/09/2022, 01/09/2022, Additional history exists INFLUENZA VACCINE (#1) 2025 1, 02/27/2018, 06/10/2017, Additional history exists Respiratory Syncytial Virus (RSV) Vaccine Pt: or over 60 yrs (1 - 1-dose 75+ series) 2031 HEPATITIS B VACCINE Aged Out No longe r eligible based on patient's age to complete this topic HIB VACCINE Aged Out No longer eligi ble based on patient's age to complete this topic HPV VACCINE Aged Out No longer eligi ble based on patient's age to complete this topic MENINGOCOCCAL (Group B) VACCINE SHARED DECISION-MAKING Aged Out No longer eligible based on patient's age to complete this topic MENINGOCOCCAL GROUPS A/C/Y/W VACCINE Aged Out No longer eligible based on patient's age to complete this topic Medical Devices Implanted Type Area Contractor [employer] Device Identifier Shelf Expiration Date Model / Serial / Lot Screw 2.7mm 5mm 28mm T8 Slf-Tap Strdr Implanted:Qty: 2 on 12/31/2021 by Fredo Shelby MD at [facility] Left: [employer] [id number] / / Screw 2.7mm 5mm 38mm T8 Slf-Tap Strdr Implanted:Qty: 1 on 12/31/2021 by Fredo Shelby MD at [facility] Left: [employer] 202.898 / / Screw 2.7mm 5mm 44mm T8 Slf-Tap Strdr Implanted:Qty: 1 on 12/31/2021 by Fredo Shelby MD at [facility] Left: [employer] [id number] / / Screw 2.7mm 5mm 46mm T8 Slf-Tap Strdr Implanted:Qty: 1 on 12/31/2021 by Fredo Shelby MD at [facility] Left: [employer] [id number] / / Screw 2.7mm 36mm T8 Slf-Tap Lck Va Strdr Implanted:Qty: 1 on 12/31/2021 by Fredo Shelby MD at [facility] Left: [employer] [id number] / / Screw 2.7mm 28mm T8 Slf-Tap Lck Va Strdr Implanted:Qty: 1 on 12/31/2021 by Fredo Shelby MD at [facility] Left: [employer] [id number] / / Plate 7 Hl Shft Lopro Cut To Lgth Cndrl Implanted:Qty: 1 on 12/31/2021 by Fredo Shelby MD at [facility] Left: [employer] [id number] / / Explanted Type Area Contractor [employer] Device Identifier Shelf Expiration Date Model / Serial / Lot Screw 2.7mm 5mm 40mm T8 Slf-Tap Strdr Explanted:Qty: 1 on 12/31/2021 by Fredo Shelby MD at [facility] Left: [employer] [id number] / / Procedures Procedure Name Priority Date/Time Associated Diagnosis Comments BASIC METABOLIC PANEL (CALCIUM TOTAL) STAT 12/17/2021 6:17 PM CDT from Last 3 Months or Most Recently Relevant to Health Maintenance Results * (ABNORMAL) BASIC METABOLIC PANEL (CALCIUM TOTAL) (12/17/2021 6:17 PM CDT) BUN 17 7 - 26 mg/dL 12/17/2021 6:53 PM [facility] Creatinine 0.65 0.56 - 0.96 mg/dL 12/17/2021 6:53 PM [facility] Sodium 142 136 - 145 mmol/L 12/17/2021 6:53 PM [facility] Potassium 4.3 3.5 - 4.5 mmol/L 12/17/2021 6:53 PM [facility] Chloride 107 98 - 107 mmol/L 12/17/2021 6:53 PM [facility] CO2 22 22 - 29 mmol/L 12/17/2021 6:53 PM [facility] Glucose 128(H) 70 - 115 mg/dL 12/17/2021 6:53 PM [facility] Calcium 9.6 8.4 - 10.2 mg/dL 12/17/2021 6:53 PM [facility] Anion Gap 17 8 - 18 12/17/2021 6:53 PM [facility] BUN/Creatinine Ratio 26(H) 7 - 23 12/17/2021 6:53 PM [facility] Osmolality Calculated 297 270 - 300 mOsm/kg 12/17/2021 6:53 PM [facility] eGFR by CKD-EPI >90 >=90 mL/min/1.7 3 m2 12/17/2021 6:53 PM [facility] Blood BLOOD SPECIMEN / Unknown Venipuncture / Unknown 12/17/2021 6:17 PM CDT 12/17/2021 6:26 PM CDT Yonatan Kaba DO LAB - CHEMISTRY ORDERABLES F inal Result [facility] [address] [place] [address], [facility] [email or web address]] [phone] from Last 3 Months or Most Recently Relevant to Health Maintenance Insurance MEDICARE [facility] MEDICARE AARP Care Teams Assurance Analyst Relationship Specialty Start Date End Date Lui Gregg MD [address] [place] [id number] PCP - General Internal Medicine 12/17/21
[2024-12-31 11:12] VITALS: BP 148/81; PULSE 79; RESP 16; TEMP 36.6; O2SAT 97
--- NOTE | 2024-12-31 11:31 | ED.EYEPROB ---
HPI - Eye Problem General Chief complaint: Eye Problems Stated complaint: bilateral eye irritation Time Seen by Provider: 12/31/24 11:31 Source: patient Mode of arrival: ambulatory Limitations: no limitations History of Present Illness HPI Narrative: 69 yo F presents with c/o bilateral eye redness, itching, irritation, drainage for 1 days. Started to L eye and now to R eye. Recently on mission trip to [facility] and on plane. No vision changes. All systems reviewed and negative except as noted above. Related Data Home Medications ?Medication ?Instructions ?Recorded ?Confirmed ?Last Taken ?Type glucosam 750 mg-chondroi 100 2 tablet PO DAILY 04/06/21 11/23/24 07/30/21 History mg-hyalur 1.65 mg-CF borate 108 mg tablet (Rewardpod) multivitamin (One Daily 1 tablet PO DAILY 04/06/21 11/23/24 07/30/21 History Multivitamin tablet) omega 1-brt-jmt-fish oil 1,200 mg 1 cap PO DAILY 04/06/21 11/23/24 07/30/21 History (144 mg-216 mg) capsule (Fish Oil) cholecalciferol (vitamin D3) 50 50 mcg PO DAILY 06/11/22 11/23/24 Unknown History mcg (2,000 unit) capsule Allergies Allergy/AdvReac Type Severity Reaction Status Date / Time No Known Allergies Allergy Unknown Verified 12/31/24 11:15 [facility] Past Medical History Medical History Tear of medial meniscus of right knee Tear of medial meniscus of knee Acute recurrent sinusitis SHERRY (obstructive sleep apnea) Vitamin D deficiency Sore throat Snoring Sleep apnea, unspecified Primary insomnia Other chronic pain Hyperglycemia HTN (hypertension), benign Chronic pain of right knee Encounter for Postoperative Care Paraesophageal hiatal hernia Epigastric abdominal pain GERD (gastroesophageal reflux disease) SHERRY (obstructive sleep apnea) Obesity HLD (hyperlipidemia) Surgical History Surgical History History of repair of hiatal hernia Robotic assisted laparoscopic paraesophageal hernia repair with mesh, [address] Cavazos on 06/18/22. Family History Family History Father Acute myocardial infarction, Onset Age: 87 Malignant neoplasm of prostate Hypertension Mother Hypertension Other Cancer Family history of arthritis Family history of cardiovascular disease Social History Social History Smoking packs per day: 0.2 Smoking cigarettes per day: 4.0 Years smoked: 3 Smoking pack-years: 0.60 Smoking status: Former smoker Tobacco type: cigarettes Smoking end date: 11/30/73 Additional smoking assessment comments: Smoked as a teenager Alcohol intake: current Drinks per week: 1 Alcohol use details: Rarely Substance use: never Substance use type: does not use Do You Feel Safe in your Home?: Yes Lack of Transportation: No Lack of Food: Never True Current Housing: I Have Housing Concerned About Future Housing: No Difficulty Paying Gas/Electric Bills: No Difficulty Paying for Meds: No Currently Unemployed: YES Education: High School Diploma/GED Difficulty w/ Childcare or Family Care: No Living arrangements: with family Additional living arrangements comments: [facility] Spiritual care concerns: No Comments At time of signature, agree with nursing past medical, surgical, social and family history. There is no relevant family history pertinent to the presenting complaint. Exam Narrative: GENERAL: This is a well-nourished, well-developed patient, in no apparent distress. HEAD: normocephalic, atraumatic. EYES: PERRL. Bilateral conjunctiva erythematous, sclera injected bilaterally. Eyes And eyelashes bilaterally have wet sticky appearance. EARS: External ears normal NOSE: External nose normal NECK: Neck supple, non-tender without lymphadenopathy, masses or thyromegaly. CARDIOVASCULAR: Regular rate and rhythm without murmurs, gallops, or rubs. RESPIRATORY: Clear to auscultation. Breath sounds equal bilaterally. No wheezes, rales, or rhonchi. SKIN: warm, Dry, intact with no suspicious lesions or rash, good texture and turgor. NEURO: awake, alert, and oriented to person, place and time. There were no obvious focal neurologic abnormalities. EXTREMITIES: No joint tenderness, effusion, or edema noted. Course Course Level of Care: Express Care Visit Vital Signs Vital signs: Vital Signs Temperature 36.6 C 12/31/24 11:12 Pulse Rate 79 12/31/24 11:12 Respiratory Rate 16 12/31/24 11:12 Blood Pressure 148/81 H 12/31/24 11:12 Pulse Oximetry 97 12/31/24 11:12 Oxygen Delivery Room Air 12/31/24 11:12 Temperature 36.6 C 12/31/24 11:12 Pulse Rate 79 12/31/24 11:12 Respiratory Rate 16 12/31/24 11:12 Blood Pressure 148/81 H 12/31/24 11:12 Pulse Oximetry 97 12/31/24 11:12 Oxygen Delivery Room Air 12/31/24 11:12 reviewed MDM - Eye Problem MDM Narrative Medical decision making narrative: will treat bilateral conjunctivitis with ofloxacin eyedrops. Patient is well-appearing, nontoxic. No vision changes. Will follow up with her waste specialist if not improving. Differential Diagnosis Differential diagnosis: Likely conjunctivitis Discharge Plan Discharge Clinical Impression: Acute bacterial conjunctivitis of both eyes Patient Disposition: Home Condition: Stable Instructions: Antibiotic Form, Conjunctivitis (ED) Additional Instructions: Place antibiotic eyedrops as prescribed. Wash hands before and after placing eyedrops. If not improving follow-up with your primary care physician. If you are having any vision changes go to the ER. Patient Language: Latvian Prescriptions: New ofloxacin 0.3 % drops See Rx Instructions EACH EYE .COMPLEX Qty: 10 0RF Rx Instructions: put 1 drop into affected eye(s) every 4 hr x 2 days, then 1 drop 4 times a day for 7 days No Action omega 4-dko-ydq-fish oil [Fish Oil] 1,200 (144-216) mg capsule 1 cap PO DAILY [facility] 750 mg-100 mg- 1.65 mg-108 mg tablet 2 tablet PO DAILY multivitamin [One Daily Multivitamin] Tablet 1 tablet PO DAILY cholecalciferol (vitamin D3) 50 mcg (2,000 unit) Capsule 50 mcg PO DAILY alendronate 70 mg tablet See Rx Instructions .ROUTE .COMPLEX Qty: 12 2RF Dose Instruction: TAKE 1 TABLET BY MOUTH ONCE A WEEK Rx Instructions: TAKE 1 TABLET BY MOUTH ONCE A WEEK Follow-up/Referrals: Lui Gregg MD [Primary Care Provider] - Time of Disposition: 11:37
== END 2024-12-31 11:41 | disposition home or self-care (01) ==
PROVIDERS: Emergency Provider Nurse Practitioner Family; PCP Emergency Medicine
DX: H10.33 Unspecified acute conjunctivitis, bilateral (principal); Z87.891 Personal history of nicotine dependence; I10 Essential (primary) hypertension; K21.9 Gastro-esophageal reflux disease without esophagitis; E78.5 Hyperlipidemia, unspecified; E66.9 Obesity, unspecified; Z68.37 Body mass index [BMI] 37.0-37.9, adult; E55.9 Vitamin D deficiency, unspecified
CPT/HCPCS: 99213; G0463